=== PATIENT | male | born 1965 | race African-American/Black ===

== ENCOUNTER 2017-02-05 16:38 | Emergency (ER) | payer OTHER ==
[~2017-02-05] VITALS: Ht 170.2 cm; Wt 78.5 kg
[~2017-02-05 16:38] MED LIST: AMITIZA24 MC1 PO; AUGMENTIN 875 M1 TAB PO; CHERATUSSIN AC480 ML PO; CYCLOBENZAPRINE10 M1 PO; CYCLOBENZAPRINE10 M3 PO; DILAUDID2 MG PO; FLEXERIL10 MG PO; FUROSEMIDE40 M1 PO; HYDROCODONE/ACE1 TA1 PO; IBUPROFEN800 M1 PO; LIDODERM1 EACH TOP; LOSARTAN POTAS100 M1 PO; LYRICA100 MG PO; MEDROL DOSEPAK1 PAC PO; METOPROLOL SUCC50 M1 PO; NAPROXEN500 MG PO; NASONEX17 GM NASB; NIFEDICAL XL60 MG PO; NIFEDIPINE ER90 MG PO; PANTOPRAZOLE SO40 M1 PO; PANTOPRAZOLE SO40 MG PO; PERCOCET 325 MG1 TA2 PO; PERCOCET 5-3251 EACH PO; PRAVASTATIN SOD10 MG PO; PREDNISONE10 MG PO; PROVENTIL HFA6.7 GM INH; TRAMADOL HCL50 M1 PO; ZITHROMAX Z-PA250 M1 PO; ZOFRAN ODT4 M1 SL
[2017-02-05 17:16] LABS: ABSOLUTE BASOPHIL COUNT 0.1 /CUMM (0.0-0.2); ABSOLUTE EOSINOPHIL COUNT 0.2 /CUMM (0.0-0.7); ABSOLUTE GRANULOCYTE CT 3.2 /CUMM (1.4-6.5); ABSOLUTE LYMPH COUNT 1.9 /CUMM (1.2-3.4); ABSOLUTE MONOCYTE COUNT 0.5 /CUMM (0.10-0.60); BASOPHIL % 1.1 % (0.0-2.0); EOSINOPHIL % 3.3 % (0-5); GRANULOCYTE % 54.5 % (42.2-75.2); HEMATOCRIT 45.2 % (42-52); MEAN CORPUSCULAR HGB 28.3 PG (27.0-31.0); MEAN CORPUSCULAR HGB CONC 33.4 G/DL (33.0-37.0); MEAN CORPUSCULAR VOLUME 84.9 FL (80.0-94.0); MEAN PLATELET VOLUME 9.1 FL (7.4-10.4); PLATELET COUNT 187 /CUMM (130-400); RBC DISTRIBUTION WIDTH 15.9 % (11.5-14.5); RED BLOOD CELL CT 5.33 /CUMM (4.70-6.10); WHITE BLOOD CELL COUNT 5.9 /CUMM (4.8-10.8)
--- NOTE | 2017-02-05 18:29 | ED CARDIAC/CP/PALPITATIONS ---
See Addendum History of Present Illness General Chief Complaint: Chest Pain Stated Complaint: CP Source: patient, old records Exam Limitations: no limitations Vital Signs & Intake/Output Vital Signs & Intake/Output Vital Signs Date Time Temp Pulse Resp B/P B/P Pulse O2 O2 Flow FiO2 Mean Ox Delivery Rate 02/05 1846 97.5 61 16 125/67 98 Room Air 02/05 1651 98.2 76 16 126/76 95 Room Air Allergies Coded Allergies: lovastatin (MUSCLE CRAMPS 07/10/16) Reconcile Medications Albuterol Sulfate (Proventil Hfa) 6.7 GM HFA.AER.AD 2 PUF INH PRN ASTHMA ( Reported) Cyclobenzaprine HCl 10 MG TABLET 1 TAB PO QPM MUSCLE SPASMS (Reported) Furosemide 40 MG TABLET 1 TAB PO DAILY DIURETIC (Reported) Losartan Potassium 100 MG TABLET 1 TAB PO DAILY BP (Reported) Lubiprostone (Amitiza) 24 MCG CAPSULE 1 CAP PO BID CONSTIPATION (Reported) Naproxen 500 MG TABLET 1 TAB PO BID PAIN/INFLAMMATION (Reported) Pantoprazole Sodium 40 MG TABLET.DR 1 TAB PO DAILY GI (Reported) Triage Note: PT STATES HE WAS SITTING DOWN AND HE BEGAN TO HAVE STIFFNESS IN HIS RIGHT UPPER EXT. AND WHEN HE LIFTED HIS ARM HE BEGAN TO HAVE CHEST PAIN . PT STATES HE TRIED TO WAIT IT OUT TO SEE IF IT WOULD GO AWAY BUT IT KEPT COMING BACK. PT STATES HE DID HAVE SOB AT THE TIME. PT STATES HE IS STILL HAVING TIGHTNESS IN HIS CHEST. PT STATES HIS DR. TOLD HIM HE HAS RIGHT SIDED HEART PROBLEMS BUT HE CAN'T REMEMBER WHAT IT WAS. Triage Nurses Notes Reviewed? yes Onset: Abrupt Duration: hour(s): (6), constant, waxing and waning Timing: recent history Quality/Severity: mild, moderate, aching Location: R SIDED Radiation: no radiation Activities at Onset: rest Nitro Today/Relief: no nitro taken today Aspirin Today: no aspirin today Associated Symptoms: DENIES HPI: 51-year-old male with history of hypertension high cholesterol presents to ER for evaluation noncompliant with medications complaining of a sudden onset of right-sided chest pain right arm pain that came on while watching TV. He states his symptoms have been reproducible movement of the arm and chest wall. He denies any known injury or trauma no shortness of breath no back pain dizziness lightheadedness palpitations. The patient is a active smoker of marijuana he denies tobacco alcohol or other drug use. He states he used to be seen by systems specialist for unknown heart problems he denies history of [place] in the past. No recent travel or immobility pain is not worse with inspiration he denies any other symptoms at this time is not attempted taking anything for his symptoms (PATRICE GOMEZ) Past History Travel History Traveled to [place] past 21 day No Medical History Any Pertinent Medical History? 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 No (PATRICE GOMEZ) Review of Systems Review of Systems Constitutional: Reports: see HPI. All Other Systems: Reviewed and Negative Comments Review of systems: See HPI, All other systems negative. Constitutional, no chills no fever, no malaise HEENT: No visual changes no sore throat no congestion, Cardiovascular: chest pain , no palpitation Skin: no rashes, no change in skin Respiratory: No dyspnea no cough no sputum no hemoptysis GI: No nausea no vomiting, no diarrhea, no bloating/constipation : No dysuria Muscle skeletal: No joint pain, no back pain, no neck pain, Neurologic: no headache Psych: No stress Heme/endocrine: No bruising no bleeding Immunology: No lymphadenopathy (PATRICE GOMEZ) Physical Exam Physical Exam General Appearance: well developed/nourished, alert, awake Cardiovascular: regular rate/rhythm Comments: Well-developed well-nourished person in no acute distress HEENT: Normal EENT exam; PERRL, EOMI. HEAD is atraumatic. moist mucous membranes. Neck: Supple, normal range of motion Back: Nontender, no CVA tenderness. Full range of motion Cardiovascular: Regular rate and rhythms no murmurs rubs or gallops Respiratory: Chest tender.There were no bony deformities, no asymmetry. No respiratory distress. Patient speaking in full complete sentences. Breath sounds clear to auscultation bilaterally: NO W/R/R Abdomen: Soft, nontender nondistended, no appreciable organomegaly. Normal bowel sounds. No rebound/guarding,. Extremity: No edema, full range of motion of extremities, Neuro: Alert oriented x3, motor sensory normal. There were no obvious focal neurologic abnormalities. Skin: No appreciable rash on exposed skin, skin is warm and dry. Psych: Mood and affect is normal, memory and judgment is normal. Core Measures ACS in differential dx? Yes Severe Sepsis Present: No Septic Shock Present: No All Positive = PERC Ruled Out: Positive: age < 50 years, heart rate < 100 bpm, O2 sat > 94%, no hemoptysis, no hormone use, no prior DVT or PE, no unilateral leg swellin, no surgery/trauma w/ in 4w. (SHAWNEE ELDRIDGE,PATRICE) Progress Differential Diagnosis: AMI, aortic dissection, atrial fibrillation, cholecystitis, CHF/pulm edema, costochondritis, musculoskeletal pain, myocarditis, pancreatitis, pericarditis, pneumonia, pneumothorax, pulmonary embolism, respiratory failure, unstable angina, V-fib/V-Tach, muscle strain Plan of Care: Orders Procedure Date/time Status Regular Diet 02/06 B Active Regular Diet 02/05 D Complete TROPONIN LEVEL 02/05 2100 Active EKG 02/05 2100 Active Telemetry/Food Service 02/05 1840 Active TROPONIN LEVEL 02/05 1652 Complete COMPREHENSIVE METABOLIC PANEL 02/05 1652 Complete CBC WITHOUT DIFFERENTIAL 02/05 165 Complete EKG 02/05 1638 Active Laboratory Tests 02/05/17 1656: Anion Gap 10, Estimated GFR > 60, BUN/Creatinine Ratio 13.6, Glucose 128 H, Calcium 8.7, Total Bilirubin 1.0, AST 23, ALT 36, Alkaline Phosphatase 114, Troponin I < 0.01, Total Protein 6.3, Albumin 3.8, Globulin 2.5, Albumin/ Globulin Ratio 1.5, CBC w Diff NO MAN DIFF REQ, RBC 5.33, MCV 84.9, MCH 28.3, RDW 15.9 H, MPV 9.1, Gran % 54.5, Lymphocytes % 32.4, Monocytes % 8.7, Eosinophils % 3.3, Basophils % 1.1, Absolute Granulocytes 3.2, Absolute Lymphocytes 1.9, Absolute Monocytes 0.5, Absolute Eosinophils 0.2, Absolute Basophils 0.1, PUBS MCHC 33.4 Labs were ordered from triage pain is reproducible and chest wall with palpation suspicion for cardiac process causing pain in his low, patient denies any symptoms at this time remain normal sinus in the 60s on the monitor Discussed the patient however given symptoms and duration will get a repeat troponin and EKG at 2100. Aspirin ordered Case discussed with and signed out to Dr. ovalle at 2000 pending repeat trop and ekg (PARTICE GOMEZ) Initial ED EKG: normal intervals, normal p-waves, normal QRS complex, normal sinus rhythm (70), nonspecific ST T wave chg Prior EKG: unchanged (09/2014) Rhythm Strip: normal sinus rhythm Hand-Off Endorsed To: SUSI OVALLE DO Endorsed Time: 1923 Pending: EKG, labs (PATRICE GOMEZ) Departure Departure Disposition: STILL A PATIENT Condition: Stable Clinical Impression Primary Impression: Atypical chest pain Referrals: RAMILA MOISE,STONEY ROSSI MD,MAXWELL (PCP/Family) Additional Instructions: follow up with your pmd as well as systems specialist dr downey this week, return to the ER with any concerns Departure Forms: Customer Survey General Discharge Information (PATRICE GOMEZ) Departure Comments 02/05/17 8:15 pm The patient was signed out to me by Patrice Mckeon at 8 PM. He is pending repeat troponin and EKG (SUSI OVALLE DO) Critical Care Note Critical Care Note Critical Care Time: non-applicable (PATRICE GOMEZ)
[2017-02-05] MEDS ORDERED: NAPROXEN500 M2 PO (19:14)
--- NOTE | 2017-02-05 19:23 | RADIOLOGY REPORT ---
EXAMINATION: XR PORTABLE CHEST CLINICAL INFORMATION: Right-sided chest pain COMPARISON: 10/20/2014 TECHNIQUE: Portable frontal view of the chest was obtained. FINDINGS: The cardiomediastinal silhouette appears normal. The lungs are clear. No consolidation, pulmonary edema, pleural effusion, or pneumothorax. The osseous structures are unremarkable. There is a stable metallic density projecting in the upper abdomen. IMPRESSION: No acute abnormality.
[2017-02-05] MEDS ORDERED: PREDNISONE20 M1 PO (21:53)
[2017-02-05 22:06] VITALS: BP 123/65
== END 2017-02-05 22:07 ==
LOC: ERH 16:38
PROVIDERS: Emergency Medicine
DX: R07.89 Other chest pain (principal)
CPT/HCPCS: 93005; 93010

== ENCOUNTER 2018-02-28 20:14 | Emergency (ER) | payer OTHER ==
[~2018-02-28] VITALS: Ht 170.2 cm; Wt 73.5 kg
[~2018-02-28 20:14] MED LIST changes: +CIPRO500 M1 PO; +HYDROCODON-ACE1 EAC2 PO; +LYRICA75 M1 PO; +NAPROXEN500 M2 PO; +OMEGA-3 ACID ETH1 GM PO; +PREDNISONE20 M1 PO
--- NOTE | 2018-02-28 21:00 | ED GENERAL ADULT ---
History of Present Illness General Chief Complaint: Lower Extremity Problems Stated Complaint: LEG PAIN AND SWELLING Source: patient Exam Limitations: no limitations Vital Signs & Intake/Output Vital Signs & Intake/Output Vital Signs Date Time Temp Pulse Resp B/P B/P Pulse O2 O2 Flow FiO2 Mean Ox Delivery Rate 02/28 2217 73 18 148/94 99 Room Air 02/28 2021 98.5 68 18 147/96 98 Room Air Allergies Coded Allergies: lovastatin (MUSCLE CRAMPS 07/10/16) Reconcile Medications Albuterol Sulfate (Proventil Hfa) 6.7 GM HFA.AER.AD 2 PUF INH PRN ASTHMA ( Reported) Cyclobenzaprine HCl 10 MG TABLET 1 TAB PO QPM MUSCLE SPASMS (Reported) Furosemide 40 MG TABLET 1 TAB PO DAILY DIURETIC (Reported) Hydrocodone/Acetaminophen (Hydrocodon-Acetaminophen 5-325) 5 MG-325 MG TABLET 1-2 TAB PO Q4-6 PRN PRN pain Losartan Potassium 100 MG TABLET 1 TAB PO DAILY BP (Reported) Lubiprostone (Amitiza) 24 MCG CAPSULE 1 CAP PO BID CONSTIPATION (Reported) Naproxen 500 MG TABLET 1 TAB PO BID PAIN/INFLAMMATION (Reported) Camilla-3 Acid Ethyl Esters 1 GRAM CAPSULE 2 CAP PO BID SUPPLEMENT (Reported) Oxycodone HCl/Acetaminophen (Percocet 5-325 MG Tablet) 5 MG-325 MG TABLET 1-2 TAB PO BID pain Pantoprazole Sodium 40 MG TABLET.DR 1 TAB PO DAILY GI (Reported) Pregabalin (Lyrica) 75 MG CAPSULE 1 CAP PO BID BURSITIS (Reported) Tramadol HCl 50 MG TABLET 1 TAB PO TIDPRN PAIN (Reported) Triage Note: PT FROM HOME C/O RLE SWELLING AND PAIN X1 DAY. PT STATES 1 MONTH PRIOR PT TORE HIS LEFT ACL AND IS AWAITING SX. PT STATES SINCE THEN HE HAS BEEN COMPENSATING PT USING CRUTCHES AND USING RIGHT EXT MORE THAN NML. PT NOTICED YESTERDAY THE RIGHT KNEE AND CALF TO BECOME SWOLLEN AND PAINFUL 10/10 PAIN. PT AMBULATING ON CRUTCHES PRIOR TO ARRIVAL AND STATES TO THIS RN"IM ON PAIN MEDS ALREADY FOR MY TEAR IN MY OTHER KNEE AND YOU KNOW I DONT WANT TO TAKE MORE THAN 1 BECAUSE I DONT WANT TO BECOME ADDICTED" PT A&0X3 IN TRIAGE. VSS. Triage Nurses Notes Reviewed? yes Onset: Gradual Duration: day(s): Timing: constant HPI: 52 y/o male with h/o HTN and HLD presenting with RLE pain and swelling since yesterday. Pt reports he recently tore his left ACL and has been compensating with his RLE since. Denies trauma to RLE. Denies numbness or paresthesias. No personal/family h/o blood clots, no recent travel/surgeries, hormone use. Past History Travel History Traveled to [place] past 21 day No Medical History Any Pertinent Medical History? 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 No Review of Systems Review of Systems Constitutional: Reports: no symptoms. EENTM: Reports: no symptoms. Respiratory: Reports: no symptoms. Cardiovascular: Reports: no symptoms. GI: Reports: no symptoms. Genitourinary: Reports: no symptoms. Musculoskeletal: Reports: see HPI. Skin: Reports: no symptoms. Neurological/Psychological: Reports: no symptoms. Hematologic/Endocrine: Reports: no symptoms. Immunologic/Allergic: Reports: no symptoms. Physical Exam Physical Exam General Appearance: well developed/nourished, no apparent distress, alert, awake , comfortable Head: atraumatic, normal appearance Eyes: Bilateral: normal appearance. Neck: normal inspection Respiratory: normal breath sounds, lungs clear Cardiovascular: regular rate/rhythm Gastrointestinal: soft, non-tender Back: normal inspection Extremities: on exam of the right lower extremity there is trace edema to the lateral aspect of the knee, no erythema or increased warmth. Unrestricted range of motion of the knee joint. Sensation intact. Motor strength 5 out of 5. Distal pulses 2+. Neurologic/Psych: awake, alert, oriented x 3, normal mood/affect Skin: intact, normal color, warm/dry Core Measures ACS in differential dx? No CVA/TIA Diagnosis: No Sepsis Present: No Sepsis Focused Exam Completed? No Progress Differential Diagnoses I considered the following diagnoses in my evaluation of the patient: [MSK strain vs DVT vs cellulitis, low concern for septic joint ] Plan of Care: Orders Procedure Date/time Status EKG 02/28 2113 Active Knee x-ray unremarkable. Low concern for DVT at this time. Likely with MSK strain 2/2 overuse while compensating for left knee injury. Given US slip for oupatient US tomorrow as US is unavailable at this time. TEJAS wrap applied and instructed to continue current home pain meds prn. Given strict return precautions. Initial ED EKG: none Departure Departure Disposition: HOME OR SELF CARE Condition: Stable Clinical Impression Primary Impression: Right leg pain Secondary Impressions: Right leg swelling Referrals: Christopher Dumont MD (PCP/Family) Additional Instructions: Keep TEJAS wrap applied to help with swelling. Use naproxen as needed for pain. Follow up for outpatient ultrasound tomorrow. Follow up with your primary care provider for re-evaluation. Return to the emergency department for any new or worsening symptoms. Departure Forms: Customer Survey General Discharge Information Critical Care Note Critical Care Note Critical Care Time: non-applicable
--- NOTE | 2018-02-28 21:48 | RADIOLOGY REPORT ---
EXAMINATION: XR KNEE, RIGHT CLINICAL INFORMATION: Pain and swelling. Effusion vs. ligament injury vs. fracture COMPARISON: None TECHNIQUE: Four views of the right knee. FINDINGS: Bones and soft tissues are normal. No fracture or joint effusion. Alignment is anatomic. Joint spaces are well maintained. No abnormal soft tissue calcification. IMPRESSION: No acute osseous abnormality of the right knee. No joint effusion seen. Consider MRI for further evaluation as clinically indicated.
[2018-02-28 22:17] VITALS: BP 148/94
== END 2018-02-28 22:47 ==
LOC: ERH 20:14
DX: M79.89 Other specified soft tissue disorders (principal); M79.604 Pain in right leg
CPT/HCPCS: 73560-RT; 93005; 93010